=== PATIENT | female | born 1995 | race Hispanic/Latino ===

== ENCOUNTER 2018-05-12 18:33 | Emergency (ER) | payer OTHER ==
[2018-05-12 18:56] VITALS: BP 112/68; PULSE 69; RESP 18; TEMP 98.2; O2SAT 100
--- NOTE | 2018-05-12 19:16 | ED PDOC ---
HPI: Female Pain Time Seen by Provider: 05/12/18 18:59 Chief Complaint (Nursing): Female Genitourinary Chief Complaint (Provider): Pelvic cramps History Per: Patient History/Exam Limitations: no limitations Onset/Duration Of Symptoms: Days (2 days) Additional Complaint(s): Pt. with 2 days of pelvic cramps. No vaginal bleeding. No back pain, dysuria, weakness, headaches. Is preg approx 1 month. Past Medical History Reviewed: Nursing Documentation, Vital Signs Vital Signs: Last Vital Signs Temp 98.2 F 05/12/18 18:52 Pulse 69 05/12/18 18:52 Resp 18 05/12/18 18:52 BP 112/68 05/12/18 18:52 Pulse Ox 100 05/12/18 18:52 - Medical History PMH: No Chronic Diseases - Surgical History Surgical History: - Family History Family History: States: Unknown Family Hx - Allergies Allergies/Adverse Reactions: Allergies Allergy/AdvReac Type Severity Reaction Status Date / Time No Known Allergies Allergy Verified 05/12/18 18:56 Review of Systems ROS Statement: Except As Marked, All Systems Reviewed And Found Negative Genitourinary Female: Positive for: Pelvic Pain. Negative for: Dysuria, Vaginal Discharge, Vaginal Bleeding Physical Exam - Reviewed Nursing Documentation Reviewed: Yes Vital Signs Reviewed: Yes - Physical Exam Appears: Positive for: Non-toxic, No Acute Distress Head Exam: Positive for: ATRAUMATIC, NORMAL INSPECTION, NORMOCEPHALIC Skin: Positive for: Normal Color, Warm, DRY Eye Exam: Positive for: EOMI, Normal appearance, PERRL ENT: Positive for: Normal ENT Inspection Neck: Positive for: Normal, Painless ROM Cardiovascular/Chest: Positive for: Regular Rate, Rhythm Respiratory: Positive for: CNT, Normal Breath Sounds Gastrointestinal/Abdominal: Positive for: Soft, Tenderness (mild across lower pelvic) Back: Positive for: Normal Inspection. Negative for: L CVA Tenderness, R CVA Tenderness Extremity: Positive for: Normal ROM Neurologic/Psych: Positive for: Alert, Oriented - Laboratory Results Result Diagrams: 05/12/18 19:59 05/12/18 19:59 Lab Results: elevated bhcg - ECG O2 Sat by Pulse Oximetry: 100 Pulse Ox Interpretation: Normal - Progress ED Course And Treament: 2251: Pain free. Tolerated PO. Pt. aware unable to viability of vs. ectopic. Come back in 3 days or see obgyn for repeat US and bhcg. Come back right away of pain, weakness, dizziness, vaginal bleeding, or not feeling right. BHCG is positive, but not at discriminatory level. Disposition - Clinical Impression Clinical Impression: Threatened , Ectopic - Patient ED Disposition Is Patient to be Admitted: No Counseled Patient/Family Regarding: Studies Performed, Diagnosis, Need For Followup - Disposition Referrals: [facility] [Outside] - 05/13/18 [facility] [Outside] - 05/13/18 Disposition: Routine/Home Disposition Time: 22:53 Condition: STABLE Additional Instructions: You are aware we are unable to tell viability of vs. ectopic . Come back in 3 days or see an obgyn for repeat US and bhcg. Come back right away of pain, weakness, dizziness, vaginal bleeding, or not feeling right. Instructions: Threatened Miscarriage, Ectopic Forms: [facility] ([place]ian), [facility] School/Work Excuse
[2018-05-12 20:44] LABS: BASO % 0.4 % (0.0-2.0); EOS # 0.1 K/uL (0.0-0.7); EOS % 0.8 % (0.0-4.0); LYMPH % 35.5 % (20.0-40.0); MEAN CELL VOLUME 91.1 fl (81.0-99.0); MEAN CORPUSCULAR HEMOGLOBIN 30.4 pg (27.0-31.0); MEAN CORPUSCULAR HGB CONC 33.3 g/dL (33.0-37.0); MEAN PLATELET VOLUME 9.4 fl (7.2-11.7); MONO # 1.2 K/uL (0.0-0.8); MONO % 14.7 % (0.0-10.0); NEUT % 48.6 % (50.0-75.0); RBC 3.64 Mil/uL (3.80-5.20); RED CELL DISTRIBUTION WIDTH 13.3 % (11.5-14.5); WHITE BLOOD COUNT 8.3 K/uL (4.8-10.8)
[2018-05-12 20:55] LABS: ALB/GLOB RATIO 1.2 (1.0-2.1); ALBUMIN 3.7 g/dL (3.5-5.0); ALT/SGPT 24 U/L (9-52); AST/SGOT 19 U/L (14-36); BLOOD UREA NITROGEN 13 mg/dl (7-17); CALCIUM 9.4 mg/dL (8.4-10.2); GFR NON-AFRICAN AMERICAN > 60
--- NOTE | 2018-05-13 10:18 | US ---
Date of service: 05/12/2018 HISTORY: preg and pain COMPARISON: None available. TECHNIQUE: Transabdominal and transvaginal FINDINGS: UTERUS: Measures 7.5 x 4.9 x 5.2 cm. No uterine mass. ENDOMETRIUM: Measures 14 mm in diameter. No intrauterine gestation identified. Cannot exclude ectopic on the basis of this examination in the absence of an intrauterine gestation. CERVIX: No cervical abnormality identified. RIGHT OVARY: Measures 4.0 x 3.0 x 3.3 cm. No solid mass. Probable corpus luteum in the right ovary is noted, measuring approximately 1.5 x 2.3 cm. This shows characteristic peripheral hypervascularity. No other mass. Normal flow demonstrated on color Doppler interrogation. LEFT OVARY: Measures 5.4 x 3.1 x 4.9 cm. No solid mass. Normal flow. Two complex cysts. There is a complex cyst with homogeneous low-level internal echoes measuring 2.8 x 2.6 x 2.0 cm and a 2nd similar complex cyst measures 1.6 x 1.7 x 1.8 cm. Possible hemorrhagic cysts versus endometriomas. Follow-up evaluation with transvaginal pelvic ultrasound examination is advised in 6-12 weeks. There is a solid left ovarian mass measuring 2.1 x 2.2 x 2.8 cm. It is moderately echogenic. No posterior shadowing. Possible dermoid tumor. Consider confirmation with magnetic resonance imaging of the pelvis. FREE FLUID: Trace right adnexal fluid. No generalized ascites. OTHER FINDINGS: None. IMPRESSION: No intrauterine gestation. Cannot exclude ectopic gestation on the basis of this examination. See above. Right ovarian corpus luteum. Two complex left ovarian cysts with homogeneous low-level echoes, possibly hemorrhagic cysts, versus endometriomas. Follow-up transvaginal pelvic ultrasound examination is advised in 6-12 weeks. 2.8 cm solid mildly echogenic left ovarian mass. Possible dermoid tumor. Recommend further evaluation with magnetic resonance imaging of the pelvis. The preliminary findings for this examination were reported by [facility] at 10:58 p.m. on 05/12/2018. There is discordance of this report with the preliminary findings. Right ovarian corpus luteum. Two left ovarian complex cysts for which follow-up transvaginal pelvic ultrasound examination is advised in 6-12 weeks. Solid left ovarian mass, possibly dermoid. Further evaluation with magnetic resonance imaging advised..
== END 2018-05-12 23:13 | disposition home or self-care (01) ==
LOC: H.ER 18:33
DX: O00.90 Unspecified ectopic pregnancy without intrauterine pregnancy (principal)